=== PATIENT | male | born 1955 | race Caucasian/White ===

== ENCOUNTER 2016-05-31 10:51 | Observation (INO) | payer OTHER ==
[2016-05-31 13:05] LABS: Hematocrit 46 % (42-52); Hemoglobin 15.6 g/dl (14.0-18.0); Mean Corpuscular HGB Conc 34 g/dl (31-36); Mean Corpuscular Hemoglobin 31 pg (27-31); Mean Corpuscular Volume 91 fL (80-94); Mean Platelet Volume 8 um3 (7.4-10.4); Red Blood Count 5.07 10^6/ul (4.0-5.4); Red Cell Distribution Width 13 % (10.5-15); White Blood Count 6.6 10^3/ul (3.5-10.8)
[2016-05-31 13:16] LABS: Albumin 4.3 g/dL (3.2-5.2); BUN/Creatinine Ratio 27.4 (8-20); Calcium 9.4 mg/dL (8.6-10.3); EGFR African American 104.4 (>60); EGFR Non-African American 81.1 (>60); Globulin 6.2 g/dL (2-4); Magnesium 2.1 mg/dL (1.9-2.7); Potassium 3.9 mmol/L (3.5-5.0); Total Bilirubin 0.6 mg/dL (0.2-1.0); Total Protein 10.5 g/dL (6.4-8.9)
[2016-05-31 13:18] LABS: Troponin I 0.01 ng/mL (<0.04)
--- NOTE | 2016-05-31 13:29 | RAD ---
INDICATION: Syncope. COMPARISON: There are no prior studies available for comparison. TECHNIQUE: Dual-energy PA and lateral views of the chest were obtained. FINDINGS: The heart is within normal limits in size. Mediastinal and hilar contours appear within normal limits. The lungs are clear. No pleural effusion is present. IMPRESSION: NO EVIDENCE FOR ACTIVE CARDIOPULMONARY DISEASE.
[2016-05-31] MEDS ORDERED: NS 0.9% 1000 ML* 1,000 ML IV ONE (13:30)
[2016-05-31 13:31] LABS: TSH (Thyroid Stimulating Horm) 1.82 mcIU/mL (0.34-5.60)
[2016-05-31] MEDS ORDERED: Iohexol 350* (CONTRAST) 500 ML MDV IV ONE (13:35)
[2016-05-31] MEDS ORDERED: Perflutren Lipid Microsphere* 3 ML VIAL ONE (14:20)
--- NOTE | 2016-05-31 15:11 | RAD ---
INDICATION: Syncope, shortness of breath. COMPARISON: Comparison is made with a prior chest x-ray study of the same date from May 31, 2016. TECHNIQUE: A CT angiogram of the chest was performed with intravenous following intravenous injection of 73 ml of Omnipaque 350 nonionic contrast. Contiguous axial sections were obtained from the lung apices through the lung bases. Images were reconstructed in the coronal and sagittal planes. FINDINGS: There is relatively homogeneous opacification of the pulmonary arteries. No intraluminal filling defect or pulmonary embolism is seen. The heart is within normal limits in size. No pericardial effusion is present. The thoracic aorta is normal in caliber. There is a homogeneous opacification with contrast. No significant enlarged mediastinal or hilar lymph nodes are seen. There is a 2 cm collection of air adjacent to the lateral aspect of the esophagus on the left side at the thoracic inlet likely representing an esophageal diverticulum. There is a 0.7 cm nodule within the right thyroid lobe. There is dependent bilateral lower lobe subsegmental atelectasis. There is a small 3 mm pulmonary nodule present in the right upper lobe best seen on image #26 and 55. The lungs are otherwise clear. No pleural effusion or pneumothorax is seen. No significant focal osseous abnormality is seen. IMPRESSION: 1. NO EVIDENCE FOR PULMONARY EMBOLISM. 2. 3 MM RIGHT UPPER LOBE PULMONARY NODULE. RECOMMEND A FOLLOW-UP NONCONTRAST CT OF THE CHEST IN ONE YEAR'S TIME TO DEMONSTRATE STABILITY. 3. AIR COLLECTION ADJACENT TO THE LEFT LATERAL ASPECT OF THE ESOPHAGUS AT THE THORACIC INLET LIKELY REPRESENTING A DIVERTICULUM. RECOMMEND A FOLLOW-UP BARIUM SWALLOW STUDY FOR FURTHER EVALUATION. 4. 0.7 CM NODULE WITHIN THE RIGHT THYROID LOBE.
--- NOTE | 2016-05-31 15:40 | ECHO ---
Patient: JANELLE COLLADO [facility] Rec#: [id number] : 1955 Date: 05/31/2016 Age: 60y Height: 167.64 cm / 66.0 in Weight: 83.91 kg / 184.9 lbs Sex: M BSA: 1.93 Room#: ED 18 Admit Date#: 05/31/2016 Type: Inpatient Referring: Duyen Breen DO Reading: Balbir Elizondo MD [employer] Claims Adjuster: Amanda Richardson RDCS,RDMS CC: Yan Pal MD Transthoracic Echocardiogram Indication: Syncope BP: 116/76 HR: 56 Rhythm: Bradycardia Indications Syncope Findings History: HLD, HTN, CP, SOB Technical Comments: The study quality is fair. Completed 1500 Left Ventricle: The left ventricular chamber size is normal. Mild concentric left ventricular hypertrophy is observed. Global left ventricular wall motion and contractility are within normal limits. The estimated ejection fraction is 55-60%. Abnormal left ventricular diastolic function is observed. Left Atrium: The left atrial chamber size is normal. Right Ventricle: The right ventricular chamber size and systolic function are within normal limits. Right Atrium: The right atrial cavity size is normal. Aortic Valve: The aortic valve is trileaflet. There is no evidence of aortic valve thickening. There is no evidence of aortic regurgitation. There is no evidence of aortic stenosis. Mitral Valve: The mitral valve leaflets appear normal. There is a trace of mitral regurgitation. There is no evidence of mitral stenosis. Tricuspid Valve: The tricuspid valve leaflets are normal. There is trace tricuspid regurgitation. No pulmonary hypertension is noted. Pulmonic Valve: There is no evidence of pulmonic valve thickening. There is a trace pulmonic regurgitation. Pericardium: There is no significant pericardial effusion. Aorta: The aortic root appears normal. There is no dilatation of the aortic arch. Pulmonary Artery: The main pulmonary artery appears normal. Venous: The inferior vena cava appears normal in size. There is a greater than 50% respiratory change in the inferior vena cava dimension. Contrast: Definity was used to optimize study. A total of 3 ml was used. Conclusions Mild concentric left ventricular hypertrophy is observed. Global left ventricular wall motion and contractility are within normal limits. The estimated ejection fraction is 55-60%. The right ventricular chamber size and systolic function are within normal limits. There is no evidence of aortic regurgitation. There is no evidence of aortic stenosis. There is a trace of mitral regurgitation. There is trace tricuspid regurgitation. No pulmonary hypertension is noted. There is no significant pericardial effusion. Measurements Name Value Normal Range RVIDd (AP) 2D 3.3 cm (0.9 - 2.6) RVDdMajor (2D) 2.6 cm (2.2 - 4.4) RAd ISD 4CH 4.4 cm (3.4 - 4.9) RA (A4C)W 3.4 cm (2.9 - 4.6) IVSd (2D) 1.2 cm (0.6 - 1) LVPWd (2D) 1.1 cm (0.6 - 1) LVIDd (2D) 4.2 cm (3.6 - 5.4) LVIDs (2D) 2.8 cm - LV FS (2D) 33 % (25 - 45) Aortic Annulus 2 cm (1.4 - 2.6) Ao root diameter (2D) 3.3 cm (2.1 - 3.5) Ascending Ao 2.9 cm (2.1 - 3.4) Aortic arch 2.6 cm (1.8 - 3.4) LA dimension (AP) 2D 4.1 cm (2.3 - 3.8) LAd ISD 4CH 5 cm (2.9 - 5.3) LA ISD 4CH W 4 cm (2.5 - 4.5) Name Value Normal Range LA ESV SP 4CH (A/L) 55.85 ml - LA ESV SP 2CH (A/L) 61.42 ml - LA ESV BP (A/L) 60.54 ml - LA ESV BP (A/L) index 31 ml/m2 - LA ESV SP 4CH (MOD) 50.46 ml - LA ESV SP 2CH (MOD) 58.08 ml - Name Value Normal Range MV E-wave Vmax 0.8 m/sec - MV deceleration time 150 msec - MV A-wave Vmax 0.6 m/sec - MV E:A ratio 1.3 ratio - P. vein S-wave Vmax 0.4 m/sec - P. vein D-wave Vmax 0.4 m/sec - P. vein A-wave duration 121 msec - LV septal e' Vmax 0.07 m/sec - LV lateral e' Vmax 0.08 m/sec - LV E:e' septal ratio 11.4 ratio - LV E:e' lateral ratio 10 ratio - Name Value Normal Range AV Vmax 1.1 m/sec - AV VTI 22.3 cm - AV peak gradient 5 mmHg - AV mean gradient 2.5 mmHg - LVOT Vmax 1 m/sec - LVOT VTI 20.4 cm - LVOT peak gradient 4 mmHg - LVOT mean gradient 1.8 mmHg - RIK Vmax 0.8 m/sec - Name Value Normal Range TR Vmax 1.9 m/sec - TR peak gradient 14 mmHg - RAP 3 mmHg - RVSP 17 mmHg - IVC diameter 1.6 cm - Name Value Normal Range PV Vmax 0.7 m/sec - PV peak gradient 2 mmHg -
[2016-05-31] MEDS: NS 0.9% 1000 ML* 1,000 ML IV SCH (16:27)
[2016-05-31] MEDS: Heparin VIAL(*) 5000 UNITS/ML VIAL (FIVE THOUSAND) SUBCUT SCH (21:05)
--- NOTE | 2016-05-31 21:44 | HP ---
HISTORY AND PHYSICAL: DATE OF ADMISSION: 05/31/16 PRIMARY CARE PROVIDER: Dr. Pal. CHIEF COMPLAINT: Syncope. HISTORY OF PRESENT ILLNESS: Mr. Donato is a 60-year-old male who has a past medical history significant for hyperlipidemia and skin cancer for which he was treated with Efudex 5% cream up until 2 weeks ago and presented to the emergency room with complaints of weakness, lethargy and episode of syncope on the evening prior to admission. The patient states that approximately 6 weeks ago, he was started on Efudex by Dr. Jama. This was for numerous skin cancers on his forehead and scalp. The patient states while he was on that cream, he had profuse diarrhea where everything he ate passed right through him and he had liquid diarrhea. During that time, the patient had not been eating or drinking normally as that exacerbated his diarrhea. Over the last 4 weeks, the patient has had intermittent lightheadedness that progressed to the point where last night he passed out. The patient states that he was walking to the door when he passed out. He had just stood up from a seated position. The patient in addition to this has had progressive shortness of breath over the last 2 to 3 days with exertion and decreased energy over the last couple weeks. His states that he is essentially lethargic. The patient denies any significant weight loss. He also admits to tightness across his chest since passing out the evening prior to admission. He does state over the last 2 weeks , however, he has been eating and drinking normally. PAST MEDICAL HISTORY: 1. Hyperlipidemia. 2. History of skin cancer. PAST SURGICAL HISTORY: 1. Left knee surgery x4 followed by left total knee replacement. 2. Bilateral hernia repair. 3. Right rotator cuff repair. MEDICATIONS: The patient states he is taking lovastatin, he does not know the dose. ALLERGIES: No known drug allergies. FAMILY HISTORY: Mom is at the age of 61 from ovarian cancer. Dad at the age of 67 from what he believes was sepsis. He also had chronic kidney disease. He was an alcoholic and had numerous other medical issues. SOCIAL HISTORY: The patient is a nonsmoker. He states that he stopped drinking alcohol altogether about a year and a half ago. 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 He is . He has 2 children. His , Fracisco, is his healthcare proxy. REVIEW OF SYSTEMS: The patient denies any fevers, chills or anorexia. He admits to chest tightness over the last 18 hours or so. No edema. He does state that he has had occasional palpitations over the last couple days. No cough. He does admit to shortness of breath with exertion over the last couple days. He has some mild nausea. No further diarrhea. No abdominal pain. No hematochezia. No hematuria. No dysuria. He admits to generalized weakness. No sudden changes in vision. He states that he has occasional feeling of food getting stuck within his chest. No joint pains or muscle pains out of the ordinary. No rashes. He does have anxiety. The patient complains of left ear fullness and muffled hearing out of that ear. PHYSICAL EXAMINATION GENERAL: The patient is a well-developed, middle aged male, sitting up in the stretcher, appearing to be in no acute distress. VITAL SIGNS: Blood pressure 116/76, pulse 75, respirations 20, temp 98.3, O2 sat 96% on room air. HEENT: Pupils are equal. They are round. They react to light. Extraocular muscles are intact. Oropharynx is clear. Oral mucosa is moist. There is a mild amount of cerumen in the right ear canal. There is a large ball of cerumen noted at the external opening of the left ear canal. There is no submandibular, cervical, or supraclavicular adenopathy. Thyroid is not enlarged. No thyroid nodules are noted. There is no axillary adenopathy felt. PULMONARY: Lungs are clear to auscultation bilaterally. CARDIAC: Normal S1, S2. Regular rate and rhythm. I do not appreciate any murmurs. There is no lower extremity edema. ABDOMEN: Bowel sounds present. Abdomen is soft, nontender, nondistended. MUSCULOSKELETAL: There is no cyanosis or clubbing of the digits. There is full active range of motion of all 4 extremities. NEUROLOGIC: Cranial nerves II through XII are grossly intact. Sensation is intact to light touch throughout. Strength is 5/5 and symmetric in both upper and lower extremities bilaterally. SKIN: Warm and dry. There are no obvious rashes. There is scattered erythematous change on the patient's forehead and scalp. PSYCH: The patient is alert, he is oriented x3. Affect appears appropriate. DIAGNOSTIC STUDIES/LAB DATA: WBC 6.6, hemoglobin 15.6, hematocrit 46, platelets 211. INR 0.89. Sodium 138, potassium 3.9, chloride 105, CO2 26, BUN 26, creatinine 0.95, glucose 105, lactic acid 0.9, calcium 9.4, magnesium 2.1, bilirubin 0.6, AST 47, ALT 34, alk phos 86, troponin 0.01, total protein 10.5, albumin 3.5, albumin to globulin ratio 0.7, TSH 1.82. EKG reveals normal sinus rhythm without any acute ST-T wave abnormalities. Chest x-ray: There is no evidence for active cardiopulmonary disease. ASSESSMENT AND PLAN: Mr. Donato is a 60-year-old male who over the last 2 weeks has had decreased energy, lightheadedness for the last 4 weeks and progressive shortness of breath over the last 2 to 3 days, who presents to the emergency room after having a syncopal episode at home the night prior to admission. 1. Syncope. The way the patient describes the syncopal episode makes me believe that this is likely orthostatic syncope. The patient states that he has been eating and drinking okay over the last 2 weeks, however for the 4 weeks while he was on Efudex cream, he states that he had profuse diarrhea. I questioned as to whether or not he may have become somewhat volume deplete. The patient will be started on normal saline at 100 mL per hour. Additionally, the patient will undergo transthoracic echocardiogram. The patient will be monitored on telemetry. Orthostatic vital signs will be obtained. 2. Shortness of breath. The etiology of this is not completely clear. I am hoping that an echocardiogram will provide useful information. The patient's lungs are completely clear to auscultation on exam. Chest x-ray was also clear. He is going to be undergoing a CTA of the chest, which may provide some useful information. 3. Chest discomfort. The patient states that this has been ongoing since last evening. His initial troponin is negative. I will get a followup troponin at 4 p.m. this afternoon. It is unclear what the chest discomfort may be related to. The CTA will either confirm or rule out a pulmonary embolism, though this seems unlikely as a source of his pain. If he ruled out and there is no pulmonary embolism, an outpatient stress test could be considered. 4. Elevated total serum protein. The patient's total protein is quite elevated at 10.6. His globulin is also elevated at 6.2 and his albumin globulin ratio is low at 0.7. This does have me somewhat concerned for possibly multiple myeloma. I did discuss these abnormal findings with the patient and his . We will go ahead and order an SPEP. 5. DVT prophylaxis. According to the Adult Thrombosis Prophylaxis Risk Factor Assessment Guide, the patient has a total risk factor score of 2 making him moderate risk. He will be started on heparin 5000 units subcutaneous q.12 hours. 5. Code status is full. Again, the patient indicates that his is his healthcare proxy. TIME SPENT: 65 minutes were spent admitting the patient. CC: Dr. Pal* [id number]/[facility] #: [id number] SANDRA
[2016-06-01] MEDS: NS 0.9% 1000 ML* 1,000 ML IV SCH (02:37)
[2016-06-01 08:15] VITALS: BP 138/80
[2016-06-01 08:21] LABS: Urine Bilirubin Negative (Negative); Urine Glucose Negative (Negative); Urine Nitrite Negative (Negative)
[2016-06-01] MEDS: Heparin VIAL(*) 5000 UNITS/ML VIAL (FIVE THOUSAND) SUBCUT SCH (09:24)
--- NOTE | 2016-06-01 10:32 | PN ---
Subjective Date of Service: 06/01/16 Interval History: PT is feeling much better. No further lightheadedness. He has ambulated around the floor without any symptoms. He feel still weaker than usual but improved from admission. Objective Active Medications: Heparin Sodium (Porcine) (Heparin Vial(*)) 5,000 units SUBCUT Q12HR [facility] Last Admin: 06/01/16 09:24 Dose: 5,000 units Sodium Chloride (Ns 0.9% 1000 Ml*) 1,000 mls @ 100 mls/hr IV PER RATE [facility] Last Admin: 06/01/16 02:37 Dose: 100 mls/hr Vital Signs 05/31/16 05/31/16 05/31/16 15:44 17:43 20:08 Temperature 98.1 F 98.5 F 98.1 F Pulse Rate 62 78 58 Respiratory 20 20 18 Rate Blood Pressure 127/71 128/78 118/65 (mmHg) O2 Sat by Pulse 99 97 Oximetry 05/31/16 05/31/16 06/01/16 20:35 23:55 02:45 Temperature 98.0 F 97.6 F Pulse Rate 64 57 55 Respiratory 16 18 Rate Blood Pressure 146/80 118/72 111/73 (mmHg) O2 Sat by Pulse 95 96 Oximetry 06/01/16 06/01/16 08:00 08:04 Temperature 97.7 F Pulse Rate 53 Respiratory 16 Rate Blood Pressure 138/80 (mmHg) O2 Sat by Pulse 98 Oximetry Appearance: Middle aged male sitting in a chair, NAD Eyes: No Scleral Icterus Ears/Nose/Mouth/Throat: Mucous Membranes Moist Respiratory: Symmetrical Chest Expansion and Respiratory Effort, Clear to Auscultation Cardiovascular: NL Sounds; No Murmurs; No JVD, RRR, No Edema Abdominal: NL Sounds; No Tenderness; No Distention Extremities: No Clubbing, Cyanosis Skin: No Rash or Ulcers, No Nodules or Sclerosis Neurological: Alert and Oriented x 3 Result Diagrams: 05/31/16 12:50 05/31/16 12:50 Assess/Plan/Problems-Billing Mr Donato is a 60 yo M who has a h/o HLD who presented to the ER with c/o lightheadedness and syncopal episode the night prior to admission. - Patient Problems (1) Syncope Current Visit: Yes Status: Acute Code(s): R55 - SYNCOPE AND COLLAPSE SNOMED Code(s): 467655058 Comment: Likely orthostatic syncope. His orthostatic vital signs did not reveal him to be orthostatic however they were done several hours after starting IVF. No events on tele. (2) Lightheadedness Current Visit: Yes Status: Acute Code(s): R42 - DIZZINESS AND GIDDINESS SNOMED Code(s): 988041625 Comment: Resolved after IVF hydration. (3) Dehydration Current Visit: Yes Status: Acute Code(s): E86.0 - DEHYDRATION SNOMED Code( s): 42087103 Comment: Likely related to profuse diarrhea while on efudex. Much improved after IVF hydration. (4) Shortness of breath Current Visit: Yes Status: Acute Code(s): R06.02 - SHORTNESS OF BREATH SNOMED Code(s): 972629333 Comment: CTA negative, echo negative for cause of SOB. CTA however revealed a 3mm RUL nodule, 7mm R thyroid lobe nodule and likely esophageal diverticulum. He will need follow up for all of these findings as an outpatient. (5) HLD (hyperlipidemia) Current Visit: Yes Status: Acute Code(s): E78.5 - HYPERLIPIDEMIA, UNSPECIFIED SNOMED Code(s): 56043488 Comment: Continue pravachol. (6) DVT prophylaxis Current Visit: Yes Status: Acute Code(s): TQI1740 - SNOMED Code(s): 880348921 Comment: SQ heparin (7) Full code status Current Visit: Yes Status: Acute Code(s): Z78.9 - OTHER SPECIFIED HEALTH STATUS SNOMED Code(s): 710266511
--- NOTE | 2016-06-01 23:13 | DS ---
DISCHARGE SUMMARY: DATE OF ADMISSION: 05/31/16 DATE OF DISCHARGE: 06/01/16 PRIMARY CARE PROVIDER: Yan Pal MD PRINCIPAL DIAGNOSES: 1. Syncope - likely orthostatic. 2. Light headedness secondary to dehydration. 3. Shortness of breath - resolved, unclear etiology. 4. Elevated total protein and globulin level concerning for multiple myeloma, SPEP pending. 5. Right upper lobe nodule, need outpatient followup. 6. Thyroid nodules - needs outpatient followup. 7. Possible esophageal diverticulum - needs outpatient followup. DISCHARGE MEDICATIONS: Pravachol. HOSPITAL COURSE: Mr. 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 The patient states that approximately 6 weeks ago , he was started on Efudex cream for the numerous squamous cell carcinomas on his forehead and scalp. He states after starting that they can feel incredibly lethargic and began having profuse diarrhea. The patient states anytime he ate anything he had liquid diarrhea immediately. He states the diarrhea was very profuse over the course of the 4 weeks. He has been off of this over the last 2 weeks, however. The patient states over the last 2 weeks, he has continued to have significant lightheadedness. On the night prior to admission, he actually has syncopal episode after standing up from the couch. The patient was admitted to the hospital under observation status for evaluation of his syncopal episode. He was monitored on telemetry and while he was noted to be mildly bradycardiac, he had no significant arrhythmias. A transthoracic echocardiogram was performed, which did not reveal any significant findings. My suspicion is that the patient was significantly volume deplete. He received aggressive IV fluid hydration and with this, he has much improved on the day on discharge. The patient has been up and ambulating in the [place] without any lightheadedness or other symptoms. The patient also complained of shortness of breath with exertion. This too appears to have resolved. There are no specific causes identified. Again, his echocardiogram was negative. He did undergo a CTA of the chest, which did not reveal any acute findings; however, he was identified to have a 7 mm right thyroid lobe nodule, a 3 mm right upper lobe nodule, and a possible esophageal diverticulum. All of these will need outpatient followup. Also on admission, the patient was noted to have an elevated total protein level and globulin level with a low albumin to globulin ratio. This is concerning for possible multiple myeloma. An SPEP was sent and the results of this are pending at the time of this dictation. The patient is aware of all of these abnormal findings on the CAT scan and the protein level and understands he needs to follow up of these on discharge. FOLLOWUP CONCERNS: The patient is being discharged home today, 06/01/16. He is to follow up with Dr. Pal in the next 4 to 7 days. ACTIVITY LEVEL: As tolerated. DIET: Regular. CONDITION ON DISCHARGE: Stable. TIME SPENT: Thirty-five minutes was spent discharging this patient reviewing all of the abnormal findings and the need to followup. CC: Yan Pal MD* [id number]/[facility] #: [id number] MTDD
--- NOTE | 2016-06-02 09:07 | ED ---
Bryon, DoctorConcepcion, scribed for Eugene Grier MD on 05/31/16 at 1201 . Complex/Multi-Sys Presentation - HPI Summary HPI Summary: 60 year old male [facility] [place] [facility] [place]/o weakness in the legs as well as a syncopal episode last night while walking. Pt reports feeling very dizzy prior to syncope at around 1830 last night. He reports weakness today as well as "shaky" legs and lightheadedness. He also indicates that he has recently been experiencing increased SOB on exertion and nausea for the past few weeks. He denies any edema in the legs or any pain. Pt recently finished chemotherapy cream on his head for skin cancer (4 week dose, finished around 2 weeks ago). He regularly sees Dr. Pal (PCP) and Soniya Ro ([employer]). - History Of Current Complaint Chief Complaint: EDSyncope Time Seen by Provider: 05/31/16 11:34 Hx Obtained From: Patient Onset/Duration: Gradual Onset Timing: Hours Severity Currently: Moderate Severity Initially: Moderate Associated Signs And Symptoms: Positive: Dizziness - lightheadedness, Weakness - legs in particular, Syncope, SOB, Nausea. Negative: Edema - Allergies/Home Medications Allergies/Adverse Reactions: Allergies Allergy/AdvReac Type Severity Reaction Status Date / Time GRASS Allergy Unknown Uncoded 11/22/11 09:18 Reaction Details SEASONAL POLLEN Allergy Unknown Uncoded 11/22/11 09:18 Reaction Details PMH/Surg Hx/FS Hx/Imm Hx Cardiovascular History: Reports: Hx Coronary Artery Disease, Hx Hypertension Musculoskeletal History: Reports: Hx Arthritis Sensory History: Reports: Hx Contacts or Glasses - READING GLASSES Denies: Hx Hearing Aid Opthamlomology History: Reports: Hx Contacts or Glasses - READING GLASSES - Surgical History Surgery Procedure, Year, and Place: 09/13/2011 LEFT KNEE [place]Y, [facility]. 1998 LEFT KNEE SCOPING, [facility]. 1999 LEFT KNEE SCOPING, [facility]. 2000 LEFT KNEE ACL RECONSTRUCTION, [facility] 2001 LEFT KNEE ARTHROSCOPIC SURGERY, [facility]. 2000 RIGHT SHOULDER ROTATOR CUFF REPAIR, [facility]. MID RIGHT INGUINAL HERNIA REPAIR, [facility]. 1989' BILATERAL INGUINAL HERNIA REPAIR WITH MESH, [facility] Hx Anesthesia Reactions: Yes - 2ND HERNIA 2001 - AGITATED AND DISORIENTED IN PACU Infectious Disease History: Denies: Traveled Outside the [place] in Last 30 Days - Family History Known Family History: Positive: Other - no FHx of malignant hyperthermia, anesthesia reaction - Social History Occupation: Employed Full-time Lives: With Family Alcohol Use: None Substance Use Type: Reports: None Smoking Status (MU): Never Smoked Tobacco Review of Systems Negative: Fever Positive: Nausea Negative: Edema Neurological: Other - dizzy, lightheaded Positive: Weakness, Syncope All Other Systems Reviewed And Are Negative: Yes Physical Exam Triage Information Reviewed: Yes Vital Signs On Initial Exam: Initial Vitals Temp Pulse Resp BP Pulse Ox 97.2 F 67 18 139/91 96 05/31/16 11:00 05/31/16 11:00 05/31/16 11:00 05/31/16 11:00 05/31/16 11:00 Vital Signs Reviewed: Yes Appearance: Positive: Well-Appearing, No Pain Distress Skin: Positive: Warm, Skin Color Reflects Adequate Perfusion, Dry Head/Face: Positive: Normal Head/Face Inspection Eyes: Positive: Normal ENT: Positive: Normal ENT inspection Neck: Positive: Supple, Nontender Respiratory/Lung Sounds: Positive: Clear to Auscultation, Breath Sounds Present Cardiovascular: Positive: RRR Abdomen Description: Positive: Nontender, Soft Bowel Sounds: Positive: Present Musculoskeletal: Positive: Normal Neurological: Positive: Normal Psychiatric: Positive: Normal - [place] Coma Scale Coma Scale Total: 15 Diagnostics - Vital Signs Vital Signs Temp Pulse Resp BP Pulse Ox 05/31/16 11:21 98.3 F 75 20 116/76 96 05/31/16 11:00 97.2 F 67 18 139/91 96 - Laboratory Lab Results: Lab Results 05/31/16 05/31/16 05/31/16 Range/Units 12:50 12:50 12:50 WBC 6.6 (3.5-10.8) 10^3/ul RBC 5.07 (4.0-5.4) 10^6/ul Hgb 15.6 (14.0-18.0) g/dl Hct 46 (42-52) % MCV 91 (80-94) fL MCH 31 (27-31) pg MCHC 34 (31-36) g/dl RDW 13 (10.5-15) % Plt Count 211 (150-450) 10^3/ul MPV 8 (7.4-10.4) um3 Neut % (Auto) 53.5 (38-83) % Lymph % (Auto) 31.8 (25-47) % [place] % (Auto) 10.1 H (1-9) % Eos % (Auto) 4.0 (0-6) % Baso % (Auto) 0.6 (0-2) % Absolute Neuts (auto) 3.5 (1.5-7.7) 10^3/ul Absolute Lymphs (auto) 2.1 (1.0-4.8) 10^3/ul Absolute Monos (auto) 0.7 (0-0.8) 10^3/ul Absolute Eos (auto) 0.3 (0-0.6) 10^3/ul Absolute Basos (auto) 0 (0-0.2) 10^3/ul Absolute Nucleated RBC 0.01 10^3/ul Nucleated RBC % 0.1 INR (Anticoag Therapy) 0.89 (0.89-1.11) Sodium 138 (133-145) mmol/L Potassium 3.9 (3.5-5.0) mmol/L Chloride 105 (101-111) mmol/L Carbon Dioxide 26 (22-32) mmol/L Anion Gap 7 (2-11) mmol/L BUN 26 H (6-24) mg/dL Creatinine 0.95 (0.67-1.17) mg/dL Est GFR ( Amer) 104.4 (>60) Est GFR (Non-Af Amer) 81.1 (>60) BUN/Creatinine Ratio 27.4 H (8-20) Glucose 105 H (70-100) mg/dL Lactic Acid (0.5-2.0) mmol/L Calcium 9.4 (8.6-10.3) mg/dL Magnesium 2.1 (1.9-2.7) mg/dL Total Bilirubin 0.60 (0.2-1.0) mg/dL AST 47 H (13-39) U/L ALT 34 (7-52) U/L Alkaline Phosphatase 86 (34-104) U/L Troponin I 0.01 (<0.04) ng/mL Total Protein 10.5 H (6.4-8.9) g/dL Albumin 4.3 (3.2-5.2) g/dL Globulin 6.2 H (2-4) g/dL Albumin/Globulin Ratio 0.7 L (1-3) TSH 1.82 (0.34-5.60) mcIU/mL 05/31/16 Range/Units 12:50 WBC (3.5-10.8) 10^3/ul RBC (4.0-5.4) 10^6/ul Hgb (14.0-18.0) g/dl Hct (42-52) % MCV (80-94) fL MCH (27-31) pg MCHC (31-36) g/dl RDW (10.5-15) % Plt Count (150-450) 10^3/ul MPV (7.4-10.4) um3 Neut % (Auto) (38-83) % Lymph % (Auto) (25-47) % [place] % (Auto) (1-9) % Eos % (Auto) (0-6) % Baso % (Auto) (0-2) % Absolute Neuts (auto) (1.5-7.7) 10^3/ul Absolute Lymphs (auto) (1.0-4.8) 10^3/ul Absolute Monos (auto) (0-0.8) 10^3/ul Absolute Eos (auto) (0-0.6) 10^3/ul Absolute Basos (auto) (0-0.2) 10^3/ul Absolute Nucleated RBC 10^3/ul Nucleated RBC % INR (Anticoag Therapy) (0.89-1.11) Sodium (133-145) mmol/L Potassium (3.5-5.0) mmol/L Chloride (101-111) mmol/L Carbon Dioxide (22-32) mmol/L Anion Gap (2-11) mmol/L BUN (6-24) mg/dL Creatinine (0.67-1.17) mg/dL Est GFR ( Amer) (>60) Est GFR (Non-Af Amer) (>60) BUN/Creatinine Ratio (8-20) Glucose (70-100) mg/dL Lactic Acid 0.9 (0.5-2.0) mmol/L Calcium (8.6-10.3) mg/dL Magnesium (1.9-2.7) mg/dL Total Bilirubin (0.2-1.0) mg/dL AST (13-39) U/L ALT (7-52) U/L Alkaline Phosphatase (34-104) U/L Troponin I (<0.04) ng/mL Total Protein (6.4-8.9) g/dL Albumin (3.2-5.2) g/dL Globulin (2-4) g/dL Albumin/Globulin Ratio (1-3) TSH (0.34-5.60) mcIU/mL Result Diagrams: 05/31/16 12:50 05/31/16 12:50 Lab Statement: Any lab studies that have been ordered have been reviewed, and results considered in the medical decision making process. - Radiology Chest X-Ray Radiology Interpretation Completed By: Radiologist - IMPRESSION: NO EVIDENCE FOR ACTIVE CARDIOPULMONARY DISEASE. - CT Chest/Thorax CTA CT Interpretation Completed By: Radiologist - Patient Name: JANELLE COLLADO Medical Record#: [id number] Ordering Physician: Eugene Grier MD Acct.#: [id number] : 1955 Age: 60 Sex: M Location: EMERGENCY DEPARTMENT Exam Date: 1329 ADM Status: REG ER Order Information: CTA CHEST Accession Number: [id number] CPT: 47222 INDICATION: Syncope, shortness of breath. COMPARISON: Comparison is made with a prior chest x-ray study of the same date from May 31, 2016. TECHNIQUE: A CT angiogram of the chest was performed with intravenous following intravenous injection of 73 ml of Omnipaque 350 nonionic contrast. Contiguous axial sections were obtained from the lung apices through the lung bases. Images were reconstructed in the coronal and sagittal planes. FINDINGS: There is relatively homogeneous opacification of the pulmonary arteries. No intraluminal filling defect or pulmonary embolism is seen. The heart is within normal limits in size. No pericardial effusion is present. The thoracic aorta is normal in caliber. There is a homogeneous opacification with contrast. No significant enlarged mediastinal or hilar lymph nodes are seen. There is a 2 cm collection of air adjacent to the lateral aspect of the esophagus on the left side at the thoracic inlet likely representing an esophageal diverticulum. There is a 0.7 cm nodule within the right thyroid lobe. There is dependent bilateral lower lobe subsegmental atelectasis. There is a small 3 mm pulmonary nodule present in the right upper lobe best seen on image #26 and 55. The lungs are otherwise clear. No pleural effusion or pneumothorax is seen. No significant focal osseous abnormality is seen. IMPRESSION: 1. NO EVIDENCE FOR PULMONARY EMBOLISM. 2. 3 MM RIGHT UPPER LOBE PULMONARY NODULE. RECOMMEND A FOLLOW-UP NONCONTRAST CT OF THE CHEST IN ONE YEAR'S TIME TO DEMONSTRATE STABILITY. 3. AIR COLLECTION ADJACENT TO THE LEFT LATERAL ASPECT OF THE ESOPHAGUS AT THE THORACIC INLET LIKELY REPRESENTING A DIVERTICULUM. RECOMMEND A FOLLOW-UP BARIUM SWALLOW STUDY FOR FURTHER EVALUATION. 4. 0.7 CM NODULE WITHIN THE RIGHT THYROID LOBE. _ <Electronically signed by Vel Dawn MD in [place]> 05/31/16 1507 Dictated By: Vel Dawn MD Dictated Date/Time: 05/31/16 1507 Transcribed Date/Time: 05/31/16 1455 Copy to: 1 of 2 - EKG 1120 EKG Rhythm: Sinus Bradycardia - [address] Segment: Normal Ectopy: None Complex Multi-Symp Course/Dx - Diagnoses Provider Diagnoses: Syncope and collapse, Weakness - Physician Notifications Discussed Care Of Patient With: Dr. Breen Instructed by Provider To: Admit As Inpatient Discharge - Discharge Plan Condition: Good Disposition: ADMITTED TO [facility] The documentation as recorded by the grzegorzibDoctor monroy Tahera accurately reflects the service I personally performed and the decisions made by , Eugene Grier MD.
[2016-06-02 15:56] LABS: Albumin 3.5 g/dL (3.4-4.7); Gamma Globulin 1.1 g/dL (0.6-1.6); Total Protein(PEP) 6.9 g/dL (6.3 - 7.9)
== END 2016-06-01 11:00 | disposition home or self-care (01) ==
LOC: ED 10:51 → MEDTELE 15:28
PROVIDERS: ADMIT Hospitalist; ATTEND Hospitalist
DX: R55 Syncope and collapse (principal); E86.0 Dehydration; R42 Dizziness and giddiness; R06.02 Shortness of breath; R07.9 Chest pain, unspecified; R77.1 Abnormality of globulin; R91.1 Solitary pulmonary nodule; E04.1 Nontoxic single thyroid nodule; I51.7 Cardiomegaly; E78.5 Hyperlipidemia, unspecified; I25.10 Atherosclerotic heart disease of native coronary artery without angina pectoris; I10 Essential (primary) hypertension; Z79.899 Other long term (current) drug therapy
CPT/HCPCS: 36415; 71020; 71275; 80053; 81003; 83605; 83735; 84155; 84165; 84443; 84484; 85025; 85379; 85610; 93005; 93306; 96360; 96361; 96372; 99284; C8929; G0378; J1644; Q9967

== ENCOUNTER 2017-03-05 10:35 | Emergency (ER) | payer OTHER ==
[2017-03-05 11:01] VITALS: BP 140/94
--- NOTE | 2017-03-05 15:08 | UC ---
Paulina Slater Nilda, scribed for NatashaColette DO Audrey on 03/05/17 at 1128 . Head Injury HPI - HPI Summary HPI Summary: This patient is a 61 year old M presenting to [facility] with a chief complaint of abrasion on the top of his head s/p head injury while at work at 0730 this morning. Pt states he was bending underneath a shelf and hit his head on a steel beam. He notes he was wearing a hat when the incident occurred, and that there was mild bleeding on the top of his head, which has since resolved. The patient rates the sharp, aching pain 9/10 in severity. Symptoms aggravated and alleviated by nothing. Patient reports occasional lightheadedness secondary to chemo cream. Patient denies LOC, ringing in ears, unsteadiness, N/V, confusion, unusual fatigue, and unusual changes in mood. Medications include chemo cream on top of head. PMHx skin CA. Pt states his last visit to his analysis or research safety inspector ( Dr. Daniel Walker) was in December. - History Of Current Complaint Chief Complaint: UCHeadInjury Stated Complaint: HEAD INJURY Hx Obtained From: Patient Onset/Duration: Sudden Onset, Lasting Hours, Still Present Severity Currently: Severe Pain Intensity: 8 Pain Scale Used: 0-10 Numeric Character: Sharp, Other - aching Aggravating Factor(s): Nothing Alleviating Factor(s): Nothing Associated Signs And Symptoms: Positive: Other - abrasion on top of head, blurry vision, headache (8/10), dizziness, lightheaded secondary to chemo cream. Patient denies LOC, ringing in ears, unsteadiness, N/V, confusion, unusual fatigue, and feeling unusually irritable/weepy.. Negative: LOC (Time In Secs./Mins/Hrs), LOC Duration Unknown - Allergies/Home Medications Allergies/Adverse Reactions: Allergies Allergy/AdvReac Type Severity Reaction Status Date / Time GRASS Allergy Unknown Uncoded 03/05/17 11:00 Reaction Details SEASONAL POLLEN Allergy Unknown Uncoded 03/05/17 11:00 Reaction Details Home Medications: Home Medications Fluorouracil (Topical) [Fluorouracil] 5 % EX 03/05/17 [History] PMH/Surg Hx/FS Hx/Imm Hx Cardiovascular History: Hypertension, Other Other Cardiovascular History: HLD Cancer History: Other Other Cancer History: Skin - Surgical History Surgical History: Yes Surgery Procedure, Year, and Place: 09/13/2011 LEFT KNEE ARTHROPLASTY, [facility]. 1998 LEFT KNEE SCOPING, [facility]. 1999 LEFT KNEE SCOPING, [facility]. 2000 LEFT KNEE ACL RECONSTRUCTION, [facility]. 2001 LEFT KNEE ARTHROSCOPIC SURGERY, [facility]. 2000 RIGHT SHOULDER ROTATOR CUFF REPAIR, [facility]. MID RIGHT INGUINAL HERNIA REPAIR, [facility]. BILATERAL INGUINAL HERNIA REPAIR WITH MESH, [facility] - Family History Known Family History: Positive: Other - no FHx of malignant hyperthermia, anesthesia reaction Negative: Cardiac Disease, Hypertension, Diabetes - Social History Alcohol Use: None Substance Use Type: None Smoking Status (MU): Former Smoker When Did the Patient Quit Smoking/Using Tobacco: 1994 Review of Systems Skin: Other - abrasion on top of head from head injury Eyes: Blurred Vision ENT: Other - negative ringing in ears Gastrointestinal: Other - negative N/V Neurological: Headache, Other - dizziness, lightheadedness; negative unusual fatigue, unsteadiness, LOC, confusion, unusual mood change. All Other Systems Reviewed And Are Negative: Yes Physical Exam Triage Information Reviewed: Yes Appearance: Well-Appearing, No Pain Distress, Well-Nourished Vital Signs: Initial Vital Signs Temp 98.4 F 03/05/17 10:55 Pulse 85 03/05/17 10:55 Resp 18 03/05/17 10:55 BP 140/94 03/05/17 10:55 Pulse Ox 99 03/05/17 10:55 Vital Signs Reviewed: Yes Eyes: Positive: Conjunctiva Clear. Negative: Discharge ENT: Positive: Hearing grossly normal. Negative: Muffled voice, Hoarse voice Neck exam: Normal Neck: Positive: Supple Respiratory: Positive: Lungs clear, Normal breath sounds, No respiratory distress, No accessory muscle use Cardiovascular: Positive: RRR, No Murmur Abdomen Description: Positive: Nontender, Soft. Negative: Distended, Guarding Bowel Sounds: Positive: Present Musculoskeletal Exam: Normal Neurological: Positive: Alert, Muscle Tone Normal, Other: - A&Ox3, CN II-XII INTACT, SENSORY MOTOR INTACT, REFLEXES INTACT, NO CEREBELLAR SIGNS, FACIAL SYMMETRY, NEGATIVE ROMBERG, NORMAL GAIT Psychological Exam: Normal Psychological: Positive: Age Appropriate Behavior Skin: Positive: Other - Warm, Dry, Normal color;Pts scalp is notable for erythema, flaking skin with slightly honey collared crust. Mild abrasion where the beam hit his head. Head Injury Course/Dx - Course Course Of Treatment: This patient is a 61 year old M presenting to [facility] with a chief complaint of abrasion on the top of his head s/p head injury while at work at 0730 this morning. Pt states he was bending underneath a shelf and hit his head on a steel beam. He notes he was wearing a hat when the incident occurred, and that there was mild bleeding on the top of his head, which has since resolved. The patient rates the sharp, aching pain 8/10 in severity. Symptoms aggravated and alleviated by nothing. Patient reports blurry vision, headache, dizziness, and occasional lightheadedness secondary to chemo cream. Patient denies LOC, ringing in ears, unsteadiness, N/V, confusion, unusual fatigue, and unusual changes in mood. Medications include chemo cream on top of head and treatmemt for HLD. PMHx skin CA. Pt states his last visit to his analysis or research safety inspector (Dr. Daniel Walker) was in December. Patient will be transferred to [facility] via ambulance for further evaluation and CT imaging. CT imaging is currently unavailable here at [facility]. The patient is agreeable with this plan. Medications reviewed. Allergies reviewed. High blood pressure noted. The pt is Dx with concussion and elevated BP without diagnosis of HTN. - Differential Dx/Diagnosis Provider Diagnoses: Concussion. Elevated blood pressure without diagnosis of hypertension. Discharge - Discharge Plan Condition: Stable Disposition: [facility] Patient Education Materials: Concussion (ED) Forms: *Work Release Referrals: Yan Pal MD [Primary Care Provider] - Additional Instructions: Provided your CT scan is negative for structural change, you appear to have a concussion. What your brain needs in order to heal is brain rest. That means that you should minimize stimulation to the brain. So no work, no reading, no television, no video games, or cell phones. Just be as bored as possible until all symptoms are gone. Once symptoms are gone, re-enter normal life gradually. Your blood pressure was elevated at this visit. That does not mean you have hypertension, it is probably due to your current condition. Please follow up with your primary care provider. The documentation as recorded by the Paulina lehman Nilda accurately reflects the service I personally performed and the decisions made by , Colette Kaur DO.
== END 2017-03-05 12:15 | disposition short-term general hospital (02) ==
LOC: UCEAST 10:35
DX: S06.0X9A Concussion with loss of consciousness of unspecified duration, initial encounter (principal); R03.0 Elevated blood-pressure reading, without diagnosis of hypertension; I10 Essential (primary) hypertension; E78.5 Hyperlipidemia, unspecified; W22.8XXA Striking against or struck by other objects, initial encounter; Y92.9 Unspecified place or not applicable; Z85.828 Personal history of other malignant neoplasm of skin
CPT/HCPCS: 99213; G0463

== ENCOUNTER 2017-03-05 12:45 | Emergency (ER) | payer OTHER ==
[2017-03-05] MEDS ORDERED: Ondansetron ODT TAB* 4 MG ONE (13:02)
[2017-03-05] MEDS ORDERED: Ondansetron ODT TAB* 4 MG PO ONE (13:05)
--- NOTE | 2017-03-05 13:41 | RAD ---
HISTORY: Head injury with nausea COMPARISONS: None TECHNIQUE: Multiple contiguous axial CT scans were obtained of the head without intravenous contrast. FINDINGS: HEMORRHAGE/INFARCT: There is no hemorrhage or acute infarct. MASSES/SHIFT: There is no mass or shift. EXTRA-AXIAL SPACES: There is prominence of the extra-axial spaces along the frontal convexities bilaterally SULCI AND VENTRICLES: The sulci and ventricles are normal in size and position for the patient's stated age. CEREBRUM: There are no focal parenchymal abnormalities. BRAINSTEM: There are no focal parenchymal abnormalities. CEREBELLUM: There are no focal parenchymal abnormalities. VESSELS: The vessels are grossly normal. PARANASAL SINUSES: The paranasal sinuses are clear. ORBITS: The orbits are unremarkable. BONES AND SOFT TISSUE: No bone or soft tissue abnormalities are noted. OTHER: None IMPRESSION: BIFRONTAL CHRONIC SUBDURAL HEMATOMAS VERSUS SUBDURAL HYGROMAS. NO ACUTE INTRACRANIAL PATHOLOGY.
[2017-03-05 14:37] VITALS: BP 121/73
--- NOTE | 2017-03-05 14:39 | ED ---
Teofilo Slater Stephanie, scribed for Ken Leiva on 03/05/17 at 1319 . Head Injury - HPI Summary HPI Summary: The pt is a 61 y/o M presenting to the ED with c/o head trauma that occurred at 07:30 today. The pt reports hitting his head on a steel beam at work. Symptoms include nausea and blurred vision. The pt denies LOC, vomiting, weakness, numbness and neck pain. - History Of Current Complaint Chief Complaint: EDHeadInjury Stated Complaint: HEAD INJURY Time Seen by Provider: 03/05/17 12:49 Hx Obtained From: Patient Mechanism Of Injury: Direct Blow Onset/Duration: Started Hours Ago - 6, Traumatic, Still Present Onset of Pain: Post Accident Severity Initially: Severe Pain Intensity: 9 Pain Scale Used: 0-10 Numeric Location of Head Injury: Occipital Associated Signs And Symptoms: Nausea, Visual Changes - blurred vision - Allergies/Home Medications Allergies/Adverse Reactions: Allergies Allergy/AdvReac Type Severity Reaction Status Date / Time GRASS Allergy Unknown Uncoded 03/05/17 11:00 Reaction Details SEASONAL POLLEN Allergy Unknown Uncoded 03/05/17 11:00 Reaction Details PMH/Surg Hx/FS Hx/Imm Hx Endocrine/Hematology History: Denies: Hx Diabetes Cardiovascular History: Reports: Hx Coronary Artery Disease, Hx Hypercholesterolemia, Hx Hypertension GI History: Reports: Other GI Disorders - C.T. [employer] DIV[employer] OF ESOPH History: Denies: Hx Renal Disease Musculoskeletal History: Reports: Hx Arthritis Sensory History: Reports: Hx Contacts or Glasses - READING GLASSES Denies: Hx Hearing Aid Opthamlomology History: Reports: Hx Contacts or Glasses - READING GLASSES - Cancer History Cancer Type, Location and Year: skin ca Hx Chemotherapy: Yes - Surgical History Surgery Procedure, Year, and Place: 09/13/2011 LEFT K[place] [facility] [facility]. 1999 LEFT [place]NEE SC[place]ING, [facility]. 2000 LEFT KNEE ACL RECONSTRUCTION, [facility]. 2001 LEFT KNEE ARTHROSCOPIC SURGERY, [facility] 2000 RIGHT SHOULDER ROTATOR CUFF REPAIR, [facility]. MID RIGHT INGUINAL HERNIA REPAIR[place] [facility]. BILATERAL INGUINAL HERNIA REPAIR WITH MESH, [facility] Hx Anesthesia Reactions: Yes - 2ND HERNIA 2001 - AGITATED AND DISORIENTED IN PACU Infectious Disease History: No Infectious Disease History: Reports: Hx Clostridium Difficile - 2012 Denies: Traveled Outside the [place] in Last 30 Days - Family History Known Family History: Positive: Other - no FHx of malignant hyperthermia, anesthesia reaction . Pos: HLD - Social History Occupation: Employed Full-time Lives: With Family Alcohol Use: None Substance Use Type: Reports: None Smoking Status (MU): Never Smoked Tobacco Review of Systems Positive: Other - Negative: LOC Positive: Blurred Vision Positive: Nausea. Negative: Vomiting Positive: Other - Negative: neck pain Negative: Weakness, Numbness All Other Systems Reviewed And Are Negative: Yes Physical Exam - Summary Physical Exam Summary: Appearance: Well appearing, no pain distress Skin: warm, dry, reflects adequate perfusion Head/face: Swelling over occipital area. Erythema and scaling over scalp Eyes: EOMI, NIRANJAN ENT: normal Neck: supple, non-tender Respiratory: CTA, breath sounds present Cardiovascular: RRR, pulses symmetrical Abdomen: non-tender, soft Bowel: present Musculoskeletal: normal, strength/ROM intact Neuro: normal, sensory motor intact, A&Ox3 Triage Information Reviewed: Yes Vital Signs On Initial Exam: Initial Vitals Temp Pulse Resp BP Pulse Ox 97.8 F 65 17 126/79 99 03/05/17 12:48 03/05/17 12:48 03/05/17 12:48 03/05/17 12:48 03/05/17 12:48 Vital Signs Reviewed: Yes Diagnostics - Vital Signs Vital Signs Temp Pulse Resp BP Pulse Ox 03/05/17 12:48 97.8 F 65 17 126/79 99 - Laboratory Lab Statement: Any lab studies that have been ordered have been reviewed, and results considered in the medical decision making process. - CT Brain CT Interpretation: No Acute Changes CT Interpretation Completed By: Radiologist - BIFRONTAL CHRONIC SUBDURAL HEMATOMAS VERSUS SUBDURAL HYGROMAS. NO ACUTE INTRACRANIAL PATHOLOGY. Head Injury Course/Dx Course Of Treatment: The pt is a 61 y/o M presenting to the ED with c/o head trauma that occurred at 07:30 today. ED physician spoke with neurosurgeon secondary school teacher librarian who suggested for pt to follow up with neurosurgeon as an outpatient as soon as possible. - Diagnoses Differential Diagnosis/HQI/PQRI: Cerebral Contusion, Contusion, Hematoma, Intracranial Bleed Provider Diagnoses: Head injury, Chronic subdural hematoma, Hygroma - Physician Notifications Discussed Care Of Patient With: Sarah Rojo - Suggested pt follow up with neuro as outpatient. Time Discussed With Above Provider: 14:22 Discharge - Discharge Plan Condition: Stable Disposition: HOME Patient Education Materials: Head Injury (ED) Referrals: Yan Pal MD [Primary Care Provider] - Sarah Rojo MD [Medical Doctor] - As Soon As Possible () Additional Instructions: Follow up with neuro as an outpatient as soon as possible. The documentation as recorded by the Teofilo lehman Stephanie accurately reflects the service I personally performed and the decisions made by Abbie maza Emmanuel.
== END 2017-03-05 14:37 | disposition home or self-care (01) ==
LOC: ED 12:45
DX: S09.90XA Unspecified injury of head, initial encounter (principal); W22.8XXA Striking against or struck by other objects, initial encounter; Y92.9 Unspecified place or not applicable; I62.03 Nontraumatic chronic subdural hemorrhage; D18.1 Lymphangioma, any site
CPT/HCPCS: 70450; 99282; A9270-GY